=== PATIENT | female | born 1950 | race Two or more races ===

== ENCOUNTER 2016-12-14 18:59 | Emergency (ER) | payer OTHER ==
[2016-12-14 19:07] VITALS: BP 125/79; PULSE 81; TEMP 97.4; BMI 24.7
--- NOTE | 2016-12-14 19:55 | PDOC ---
History of Present Illness - General Chief Complaint: Injury Stated Complaint: FALL/INJURY Time Seen by Provider: 12/14/16 19:35 History Source: Patient, Spouse Exam Limitations: No Limitations - History of Present Illness Initial Comments: 12/14/16 19:50 Patient was at the grocery store, slipped and fell on spilled dishwashing soap. States landed on the right side with an outstretched arm, wrenching her right shoulder and falling on her right hip and buttock. Patient states has pain and mild immobility to her shoulder, upper arm and right hip/buttock. No head injury, no numbness or tingling in hands or feet, 12/14/16 20:23 Occurred: reports: just prior to arrival, this afternoon Severity: reports: mild, moderate Pain Location: reports: back, pelvis, upper extremity (right shoulder) Method of Injury: Yes: fall Modifying Factors: improves with: None Loss of Consciousness: no loss of consciousness Associated Symptoms (Fall): denies symptoms Past History - Travel Traveled outside of the country in the last 30 days: No Close contact w/someone who was outside of country & ill: No - Past Medical History Allergies/Adverse Reactions: Allergies Allergy/AdvReac Type Severity Reaction Status Date / Time No Known Allergies Allergy Verified 12/14/16 19:03 Anemia: No Suicide Attempt (Hx): No - Surgical History Abdominal Surgery: Yes - Immunization History Immunization Up to Date: Yes - Psycho/Social/Smoking Cessation Hx Anxiety: No Suicidal Ideation: No Smoking Status: No Smoking History: Current some day smoker Have you smoked in the past 12 months: Yes Number of Cigarettes Smoked Daily: 2 Cigars Per Day: 0 Information on smoking cessation initiated: No Hx Alcohol Use: No Drug/Substance Use Hx: No Substance Use Type: None Review of Systems - Review of Systems Able to Perform ROS?: Yes Is the patient limited Hebrew proficient: Yes Constitutional: Yes: Symptoms Reported, See HPI, Malaise HEENTM: Yes: Symptoms Reported Respiratory: Yes: Symptoms reported, See HPI. No: Cough Integumentary: Yes: Symptoms Reported, See HPI, Bruising (right shoulder ) Neurological: Yes: See HPI. No: Symptoms reported All Other Systems: Reviewed and Negative *Physical Exam - Vital Signs Last Vital Signs Temp Pulse Resp BP Pulse Ox 97.4 F L 81 20 125/79 96 12/14/16 19:04 12/14/16 19:04 12/14/16 19:04 12/14/16 19:04 12/14/16 19:04 - Physical Exam General Appearance: Yes: Nourished, Appropriately Dressed, Apparent Distress HEENT: positive: EFREN, Normal ENT Inspection, TMs Normal, Pharynx Normal Neck: positive: Supple, Other (no C-spine tenderness, no bony tenderness, full range of motion at neck). negative: Tender Respiratory/Chest: positive: Lungs Clear, Normal Breath Sounds Cardiovascular: positive: Regular Rate Gastrointestinal/Abdominal: positive: Soft. negative: Tender Extremity: positive: Normal Capillary Refill, Other (right hip with tenderness at the penitentiary tuberosity, pelvis is stable, and is ambulatory with mild slowness to gait secondary to pain to her hip. Has no obvious hematoma crepitus or step-offs. Range of motion is limited secondary to tenderness at hip joint but is ambulatory. Neurovascular intact to foot). negative: Normal Range of Motion (range of motion mildly limited to right shoulder, able to abduct past 90 but is tender past that angle and worsened against resistance. Able to forward and posterior flex with minimal pain. Strong flexion and extension to wrist and elbow and neurovascular intact to hand right side.) Integumentary: positive: Normal Color, Ecchymosis (faint ecchymosis noted on right shoulder, no crepitus or step-offs,) Neurologic: positive: management trainee program stores II-XII NML intact, Fully Oriented, Alert, Normal Mood/ Affect, Normal Response, Motor Strength 5/5 ED Treatment Course - RADIOLOGY Radiology Studies Ordered: Category Date Time Status SHOULDER-RIGHT [RAD] Stat Radiology 12/14/16 19:48 Ordered Progress Note - Progress Note Progress Note: post fall with multiple contusions. No bony injury/fractures per x-ray shoulder and pelvis. Patient has pain medication at home *DC/Admit/Observation/Transfer Diagnosis at time of Disposition: Multiple contusions - Discharge Dispostion Disposition: HOME Condition at time of disposition: Stable Admit: No - Referrals Referrals: Maxim Allen MD [Primary Care Provider] - - Patient Instructions Printed Discharge Instructions: Easy Bruising (Alternative Therapy) Additional Instructions: Rest, ice to area on and off for 15 minutes 4-6 times a day Avoid heavy lifting or exercise until pain and swelling is resolved or until further directed Keep area highly elevated to reduce swelling Use splints/Angel wrap as directed Followup with orthopedist in one to 2 days if not improving, if significantly improved may wait one week for followup with orthopedist May use ibuprofen 2-200 mg tablets every 6 hours as needed for pain - Post Discharge Activity Work/School Note: Back to Work
== END 2016-12-14 20:24 | disposition home or self-care (01) ==
LOC: JERFT 18:59
DX: S40.011A Contusion of right shoulder, initial encounter (principal); W01.0XXA Fall on same level from slipping, tripping and stumbling without subsequent striking against object, initial encounter; Y93.89 Activity, other specified; Y92.512 Supermarket, store or market as the place of occurrence of the external cause
CPT/HCPCS: 72170-TC; 73030-TC-RT; 99281-25

== ENCOUNTER 2018-10-16 08:10 | Emergency (ER) | payer OTHER ==
[2018-10-16 08:14] VITALS: BP 140/79; PULSE 84; TEMP 97.5; BMI 25.7
--- NOTE | 2018-10-16 08:54 | PDOC ---
History of Present Illness - General Chief Complaint: Injury Stated Complaint: EMPLOYEE, INJURY Time Seen by Provider: 10/16/18 08:31 History Source: Patient Exam Limitations: No Limitations - History of Present Illness Initial Comments: 10/16/18 08:44 67 yr female states she slipped and fell on wet floor at work this AM injured left wrist, right knee and pain in both hips. no head trauma. 10/16/18 08:45 Occurred: reports: this morning Severity: reports: mild Pain Location: reports: lower extremity Method of Injury: Yes: fall Past History - Past Medical History Allergies/Adverse Reactions: Allergies Allergy/AdvReac Type Severity Reaction Status Date / Time No Known Allergies Allergy Verified 10/16/18 08:14 Home Medications: Ambulatory Orders NK [No Known Home Medication] 10/16/18 Anemia: No COPD: No - Surgical History Abdominal Surgery: Yes - Immunization History Immunization Up to Date: Yes - Suicide/Smoking/Psychosocial Hx Smoking Status: No Smoking History: Current every day smoker Have you smoked in the past 12 months: Yes Number of Cigarettes Smoked Daily: 3 Cigars Per Day: 0 Information on smoking cessation initiated: Yes Hx Alcohol Use: No Drug/Substance Use Hx: No Substance Use Type: None Review of Systems - Review of Systems Able to Perform ROS?: Yes Is the patient limited East Timorese proficient: No Constitutional: No: Symptoms Reported HEENTM: No: Symptoms Reported *Physical Exam - Vital Signs Last Vital Signs Temp Pulse Resp BP Pulse Ox 97.5 F L 84 17 140/79 98 10/16/18 08:12 10/16/18 08:12 10/16/18 08:12 10/16/18 08:12 10/16/18 08:12 - Physical Exam General Appearance: Yes: Nourished, Appropriately Dressed HEENT: positive: EOMI, EFREN Neck: positive: Supple. negative: Tender lateral, Tender midline Gastrointestinal/Abdominal: positive: Normal Bowel Sounds, Soft Musculoskeletal: positive: Normal Inspection Extremity: positive: Normal Capillary Refill, Normal Inspection, Normal Range of Motion, Tender (right knee, left wrist, bilateral hips , no swelling no bruising) Moderate Sedation - Procedure Monitoring Vital Signs: Procedure Monitoring Vital Signs Temperature 97.5 F L 10/16/18 08:12 Pulse Rate 84 10/16/18 08:12 Respiratory Rate 17 10/16/18 08:12 Blood Pressure 140/79 10/16/18 08:12 O2 Sat by Pulse Oximetry (%) 98 10/16/18 08:12 Medical Decision Making - Medical Decision Making 10/16/18 09:55 cc: slip and fall on wet floor pt states she did a split and fell has pain to knee hips and wrist pt took motrin [employer]EL[employer] ambualting freely no distress will get xrays *DC/Admit/Observation/Transfer Diagnosis at time of Disposition: Sprain and strain - Discharge Dispostion Disposition: HOME Condition at time of disposition: Good - Referrals Referrals: Maxim Allen MD [Primary Care Provider] - - Patient Instructions Printed Discharge Instructions: How to Prevent Falls Additional Instructions: take ibuprofen (motrin ) as directed every 8hrs follow with your doctor in 2-3 days for follow up you may feel sore for the next couple of days - Post Discharge Activity Forms/Work/School Notes: Back to Work
== END 2018-10-16 10:07 | disposition home or self-care (01) ==
LOC: JERFT 08:10
DX: S73.109A Unspecified sprain of unspecified hip, initial encounter (principal); T14.8XXA Other injury of unspecified body region, initial encounter; W01.0XXA Fall on same level from slipping, tripping and stumbling without subsequent striking against object, initial encounter; Y93.9 Activity, unspecified; Y92.89 Other specified places as the place of occurrence of the external cause; Y99.0 Civilian activity done for income or pay; F17.210 Nicotine dependence, cigarettes, uncomplicated
CPT/HCPCS: 73110-TC-LR-FY; 73130-TC-LT-FY; 73502-TC-LT-FY; 73502-TC-RT; 73562-TC-RT-FY; 99281-25

== ENCOUNTER 2019-09-04 07:07 | Day surgery (SDC) | payer OTHER ==
[2019-09-03 10:33] VITALS: BMI 24.7
--- NOTE | 2019-09-04 08:24 | HP ---
Satellite [facility] [place] - Chief Complaint Chief Complaint: right knee pain - Past Medical History Allergies/Adverse Reactions: Allergies Allergy/AdvReac Type Severity Reaction Status Date / Time No Known Allergies Allergy Verified 09/04/19 07:49 - Current Medications Current Medications: Home Medications Medication Instructions Recorded NK [No Known Home Medication] 10/16/18 Hydrocodone/Acetaminophen 1 each PO Q6H #20 tablet MDD 4 09/04/19 [Hydrocodone-Acetamin 5-325 mg] Satellite Physical Exam - Physical Examination Vital Signs: Vital Signs Period Temp Pulse Resp BP Sys/Chow Pulse Ox Last 24 Hr 98 F 85 18 131/79 99 General Appearance: Well Nourished, Well Developed, Alert & Oriented x3 ENT: Clear Lung: Normal air movement Extremities: Other (right knee- +swelling, + ttp, dec rom ,nvi, MRI + mt) Neurological: Intact, Alert, Oriented [facility] Impression/Plan - Impression/Plan Impression: right knee internal derangement Operative Procedure: right knee arthroscopy Date to be Performed: 09/04/19
[2019-09-04 08:46] LABS: EPI CELLS 0.6 /HPF (0-5/HPF); HYALINE CASTS 1 /lpf (0-8); PH,URINE 7.5 (5.0-8.0); URINE APPEARANCE CLEAR; URINE BACTERIA 0.3 /hpf (NEGATIVE); URINE BILIRUBIN NEGATIVE (NEGATIVE); URINE COLOR YELLOW; URINE GLUCOSE (UA) NEGATIVE (NEGATIVE); URINE KETONE NEGATIVE (NEGATIVE); URINE LEUK ESTERASE TRACE (NEGATIVE); URINE NITRITE NEGATIVE (NEGATIVE); URINE PROTEIN NEGATIVE (NEGATIVE); URINE RBC 8 /hpf (0-4); URINE UROBILINOGEN 0.2 mg/dL (0.2-1.0); URINE WBC 4 /hpf (0-5)
[2019-09-04] MEDS ORDERED: BUPIVACAINE HCL/PF 0.5% (5 MG/ML) 30 ML VIAL IJ ONE ×3 (08:54→10:04)
[2019-09-04] MEDS ORDERED: PROPOFOL 20 ML ONE (09:10)
[2019-09-04] MEDS ORDERED: MIDAZOLAM HCL 2 MG/2 ML SINGLE DOSE VIAL ONE (09:10)
[2019-09-04] MEDS ORDERED: DEXAMETHASONE SOD PHOSPHATE 4 MG/1 ML VIAL ONE (09:12)
[2019-09-04] MEDS ORDERED: ceFAZolin SODIUM 1 GM VIAL ONE (09:12)
[2019-09-04] MEDS ORDERED: KETOROLAC TROMETHAMINE 30 MG/1 ML VIAL ONE (09:12)
[2019-09-04] MEDS ORDERED: ceFAZolin SODIUM 1 GM VIAL IVPB ONE (09:35)
--- NOTE | 2019-09-04 10:16 | OP ---
Operative Note - Note: Operative Date: 09/04/19 Pre-Operative Diagnosis: right knee pain, MM tear, OA Operation: right knee arthroscopy, partial medial meniscectomy, partail lateral menscectomy, debridement chondroplasty Post-Operative Diagnosis: Same as Pre-op Surgeon: Gunnar Cr Anesthesiologist/MASON [employer]ER [employer]ATION [employer]OR: Mark Anthony Basilio Anesthesia: General, Local Specimens Removed: shavings Estimated Blood Loss (mls): 0 Drains, Volume Out (mls): 0 Blood Volume Replaced (mls): 0 Fluid Volume Replaced (mls): 500 Operative Report Dictated: Yes
[2019-09-04] MEDS ORDERED: ONDANSETRON 4 MG/2 ML VIAL IVPUSH PRN (10:19)
[2019-09-04] MEDS ORDERED: oxyCODONE HCL 5 MG TABLET PO PRN (10:19)
[2019-09-04] MEDS ORDERED: LACTATED RINGERS SOLUTION 1,000 ML IV SCH (10:30)
[2019-09-04] MEDS ORDERED: ACETAMINOPHEN INJECTION 100 ML IVPB ONE (10:50)
[2019-09-04] MEDS ORDERED: ACETAMINOPHEN 1000 MG/100 ML VIAL (NON FORMULARY) IVPB ONE (10:53)
[2019-09-04 12:47] VITALS: TEMP 97.6
[2019-09-04 13:22] VITALS: BP 112/74; PULSE 84
--- NOTE | 2019-09-04 14:20 | OP ---
DATE OF OPERATION: 09/04/2019 PREOPERATIVE DIAGNOSES: Right knee pain, medial meniscus tear, and osteoarthritis. POSTOPERATIVE DIAGNOSES: Right knee pain, medial meniscus tear, and osteoarthritis, lateral meniscus tear. SURGERY: Right knee arthroscopy, partial medial and lateral meniscectomy, and debridement chondroplasty. SURGEON: Beryl Weber MD ASSISTANTS: None. ANESTHESIOLOGIST: Mark Anthony Basilio MD ANESTHESIA: LMA anesthesia with local injection of 20 mL of 0.5% Marcaine. DRAINS: None. COMPLICATIONS: None. SPECIMENS: Arthroscopic shavings. BLOOD LOSS: None. BLOOD GIVEN: None. FLUID REPLACEMENT: 500 mL Plasmalyte. INDICATIONS FOR PROCEDURE: This patient is a 68-year-old female with a preoperative diagnosis of severe right knee pain, medial meniscus tear, and osteoarthritis. After understanding the potential risks, complications, alternatives, and benefits of surgical versus non-surgical treatment, the patient elected to undergo this procedure. PROCEDURE: The patient was brought to the operating room, peripheral IV placed, IV sedation given. IV Ancef 2 g was given. LMA anesthesia was induced. Ample Webril was placed around the right thigh. The C-clamp leg hsieh was applied with a tourniquet and a Styrofoam ring. The right lower extremity was prepped and draped in sterile fashion, elevated, exsanguinated with an Esmarch bandage, and the tourniquet inflated to 275 mmHg. A superior medial outflow portal was established. A lateral portal was established and the arthroscope was introduced into the joint and a diagnostic arthroscopy was performed. Immediately, it was apparent the patient had a complex tear of the body and posterior horn of the medial meniscus. There was one area about the size of a nickel of grade 4 osteoarthritis in the medial femoral condyle with surrounding areas of grade 3 osteoarthritis and grade 2 chondromalacial changes of the medial tibial plateau. Using a combination of the straight basket forceps and the curved shaver, a partial medial meniscectomy was performed. Photographs were taken before and after. In the intracondylar notch, the ACL looked good. The patient had a large ligamentum mucosa and this was removed. This then revealed a very large extruded fragment of the anterior horn of the lateral meniscus. This was debrided and taken out with a combination of the straight basket forceps, the shaver, and a grasper. I then removed additional synovitis from the lateral compartment. This then revealed a complex, degenerative-type tear of the entire body and posterior horn of the lateral meniscus. This was debrided with a combination of the straight basket forceps, the left biter, and the curved shaver. Photographs were taken before and after. The lateral compartment was cleaned up. Next, our attention turned to the patellofemoral joint. Here the patient also had a lot of synovitis, also excessive Hoffa fat pad which was removed. Once this was done, this revealed the patient had large areas of grade 4 and surrounding grade 3 osteoarthritis of the femoral trochlea. The undersurface of the patella looked good with only small areas of grade 1 changes. The trochlea was debrided, as well. After this debridement chondroplasty, the area was copiously irrigated and washed out. All excess saline and debris were removed. The arthroscopy portals were closed with 3-0 nylon sutures. The area was then washed and dried, covered with Xeroform gauze, 4 x 4 gauze, Webril, and 6-inch Angel bandage. The tourniquet was taken down after a total tourniquet time of 20 minutes. There were no complications during the case. The patient tolerated the procedure quite well and was brought to the ambulatory recovery room in stable condition. BERYL WEBER M.D. [id number]
--- NOTE | 2019-09-05 18:38 | PATH ---
Surgical Pathology Report Patient Name: LALA EVANS Med. Rec. #: [id number] /Age/Gender: 1950 (Age: 68) / F Account: [id number] Location: [facility] SURGICAL Taken: 09/04/2019 Received: 09/04/2019 Reported: 09/05/2019 Physicians: Gunnar Cr M.D. Specimen(s) Received RIGHT KNEE SHAVINGS Clinical History Right knee medial and lateral meniscus tear and arthritis Final Diagnosis RIGHT KNEE SHAVINGS: FRAGMENTS OF FIBROSYNOVIAL TISSUE WITH FOCAL FIBROSIS. Electronically Signed Radha Irwin M.D. Gross Description Received in formalin, labeled "right knee shavings," is a 6.5 x 5.5 x 0.4 cm. aggregate of leiva-yellow soft tissue fragments. A inside sales account representative portion is submitted in one cassette. /09/04/201909/04/2019
== END 2019-09-04 13:30 | disposition home or self-care (01) ==
LOC: JASU-SURG 07:07
PROVIDERS: ATTEND Orthopaedic Surgery
PROC: 0SBC4ZZ Excision of Right Knee Joint, Percutaneous Endoscopic Approach (ICD-10-PCS; 2019-09-04)
PROC: 0SBC4ZZ Excision of Right Knee Joint, Percutaneous Endoscopic Approach (ICD-10-PCS; principal; 2019-09-04 09:00)
DX: S83.281A Other tear of lateral meniscus, current injury, right knee, initial encounter (principal); S83.241A Other tear of medial meniscus, current injury, right knee, initial encounter; M17.11 Unilateral primary osteoarthritis, right knee; X58.XXXA Exposure to other specified factors, initial encounter; Y93.9 Activity, unspecified; Y92.9 Unspecified place or not applicable; Y99.9 Unspecified external cause status
CPT/HCPCS: 81003; 88304-TC; 94760; J0131